=== PATIENT | female | born 1990 | race African-American/Black ===

== ENCOUNTER → 2020-01-21 | Outpatient (CLI) | payer OTHER ==
--- NOTE | 2020-01-21 16:46 | RAD ---
EXAM: CT Orbits with and without IV contrast INDICATION: Reason: TRAUMA TO RIGHT EYE / Spl. Instructions: / History: TECHNIQUE: Multi-detector row CT images were obtained through the orbits without the use of IV contrast. Post-processing reconstructed images were obtained for interpretation. All CT scans performed at this facility utilize dose optimization techniques as appropriate to the exam, including the following: Automated exposure control and adjustment of the mA and/or KV according to patient size (this includes techniques or standardized protocols for targeted exams where dose is indication/reason for exam). IV CONTRAST: Administered COMPARISON: None FINDINGS: ORBITS: The globes are normal in size, contour, and position. The course and caliber of the optic nerve sheath complex is within normal limits. The extraocular muscles, intraconal fat, and extraconal fat are unremarkable. The lacrimal glands appear normal. The orbital villanueva and optic canals are normal. VISUALIZED INTRACRANIAL STRUCTURES: Unremarkable. SINUSES: Visualized paranasal sinuses and mastoid air cells are clear. OSSEOUS & SOFT TISSUES: Unremarkable. IMPRESSION: Normal CT of the orbits without contrast. Electronically signed by: Yemi Salas MD (01/21/2020 4:43 PM) [facility] [place]
== END | disposition home or self-care (01) ==
LOC: CT 16:18
PROVIDERS: ATTEND Nurse Practitioner Family
DX: S05.91XA Unspecified injury of right eye and orbit, initial encounter (principal); X58.XXXA Exposure to other specified factors, initial encounter; Y93.89 Activity, other specified; Y92.89 Other specified places as the place of occurrence of the external cause; Y99.8 Other external cause status
CPT/HCPCS: 70480